=== PATIENT | male | born 1945 | race Two or more races ===

== ENCOUNTER → 2020-11-17 | Emergency (ER) | payer BC, OTHER | END | disposition left against medical advice (07) | LOC: ER 00:53 | DX: R51.9 Headache, unspecified (principal); Z53.21 Procedure and treatment not carried out due to patient leaving prior to being seen by health care provider | CPT/HCPCS: 93005 ==

== ENCOUNTER 2020-12-18 03:04 | Emergency (ER) | payer BC ==
[~2020-12-18] VITALS: Ht 182.9 cm; Wt 72.6 kg
[2020-12-18 04:06] LABS: Urine Bacteria FEW /hpf (None Seen); Urine Blood Negative /uL (Negative); Urine Specific Gravity 1.012 (1.001-1.035); Urine WBC <1 /hpf (0 - 3)
[2020-12-18 06:37] LABS: Basophils # (auto) 0 10 ^3/uL (0-0.2); Basophils % (auto) 0.3 % (0.0-2.0); Eosinophils # (auto) 0.1 10 ^3/uL (0-0.8); Eosinophils % (auto) 2.9 % (0.0-7.0); Hematocrit 30.3 % (41.0-53.0); Hemoglobin 9.5 g/dL (13.5-17.5); Lymphocytes # (auto) 0.7 10 ^3/uL (0.4-5.4); Lymphocytes % (auto) 20.3 % (10.0-50.0); Mean Corpuscular Hemoglobin 23.2 pg (28.0-32.0); Mean Corpuscular Hgb Conc. 31.3 g/dL (32.0-36.0); Mean Corpuscular Volume 74.2 fL (80.0-100.0); Monocytes # (auto) 0.2 10 ^3/uL (0-1.3); Monocytes % (auto) 6.7 % (0.0-12.0); Neutrophils # (auto) 2.4 10 ^3/uL (1.6-8.6); Neutrophils % (auto) 69.8 % (37.0-80.0); Nucleated Red Blood Cells % 0.1 %; Platelet Count (auto) 280 10^3/uL (140-450); Red Blood Cells 4.08 10^6/uL (4.5-5.90); Red Cell Distribution Width 19.5 % (11.8-14.3); White Blood Cell 3.4 10^3/uL (4.4-10.8)
[2020-12-18 06:46] VITALS: BP 168/60
[2020-12-18 07:06] LABS: Anion Gap 11 (5-15); Carbon Dioxide 21 mmol/L (21-32); Chloride 106 mmol/L (98-107); Glucose 81 mg/dL (74-106); Potassium 3.1 mmol/L (3.5-5.1); Sodium 138 mmol/L (136-145)
[2020-12-18 07:07] LABS: Albumin 3.4 g/dL (3.4-5.0); Blood Urea Nitrogen 9 mg/dL (7-18)
[2020-12-18 07:10] LABS: Alanine Aminotransferase 16 U/L (16-61); Aspartate Aminotransferase 17 U/L (15-37); BUN/Creatinine Ratio 10.8; GFR African American 117 mL/min; GFR Non-African American 97 mL/min
[2020-12-18 07:14] LABS: Alkaline Phosphatase 54 U/L (45-117); Bilirubin, Total 0.4 mg/dL (0.2-1.0); Total Protein 6.9 g/dL (6.4-8.2)
== END 2020-12-18 06:48 | disposition home or self-care (01) ==
LOC: EDBD 03:04 → ER 03:11
DX: M79.10 Myalgia, unspecified site (principal); R53.1 Weakness; R53.81 Other malaise; Z20.822 Contact with and (suspected) exposure to COVID-19
CPT/HCPCS: 36415; 71045; 80053; 81001; 84484; 85025; 87426; 93005

== ENCOUNTER 2020-12-26 07:43 | Emergency (ER) | payer BC ==
[~2020-12-26] VITALS: Ht 170.2 cm; Wt 81.6 kg
[2020-12-26] MEDS ORDERED: SODIUM CHLORIDE 0.9% 1,000 ML IV ONE (08:00)
[2020-12-26 08:10] LABS: Basophils # (auto) 0 10 ^3/uL (0-0.2); Eosinophils # (auto) 0 10 ^3/uL (0-0.8); Lymphocytes # (auto) 0.8 10 ^3/uL (0.4-5.4); Monocytes # (auto) 0.3 10 ^3/uL (0-1.3); Nucleated Red Blood Cells % 0.1 %
[2020-12-26 08:13] LABS: Basophils % (auto) 0.8 % (0.0-2.0); Eosinophils % (auto) 0.9 % (0.0-7.0); Hematocrit 29.9 % (41.0-53.0); Hemoglobin 9.3 g/dL (13.5-17.5); Lymphocytes % (auto) 15.9 % (10.0-50.0); Mean Corpuscular Hemoglobin 23.3 pg (28.0-32.0); Monocytes % (auto) 5.2 % (0.0-12.0); Neutrophils # (auto) 4.1 10 ^3/uL (1.6-8.6); Neutrophils % (auto) 77.2 % (37.0-80.0); Platelet Count (auto) 317 10^3/uL (140-450); Red Blood Cells 3.99 10^6/uL (4.5-5.90); Red Cell Distribution Width 19.9 % (11.8-14.3); White Blood Cell 5.3 10^3/uL (4.4-10.8)
[2020-12-26] MEDS ORDERED: ALUM & MAG HYDROX-SIMETH LIQ(MAALOX) 30 ML PO ONE (08:15)
[2020-12-26] MEDS ORDERED: DONNATAL 5ml ORAL Elix (BELLADONNA ALK-PHENOBARB) PO ONE (08:15)
[2020-12-26] MEDS ORDERED: LIDOCAINE VISCOUS 2% 15ML UD PO ONE (08:15)
[2020-12-26 08:22] LABS: Alanine Aminotransferase 19 U/L (16-61); Albumin 3.8 g/dL (3.4-5.0); Anion Gap 16 (5-15); Aspartate Aminotransferase 18 U/L (15-37); BUN/Creatinine Ratio 14.5; Blood Urea Nitrogen 18 mg/dL (7-18); Calcium 8.8 mg/dL (8.5-10.1); Carbon Dioxide 16 mmol/L (21-32); Chloride 108 mmol/L (98-107); GFR African American 73 mL/min; GFR Non-African American 61 mL/min; Glucose 80 mg/dL (74-106); Sodium 140 mmol/L (136-145)
[2020-12-26 08:29] LABS: Alkaline Phosphatase 52 U/L (45-117); Bilirubin, Total 0.3 mg/dL (0.2-1.0); Potassium 2.9 mmol/L (3.5-5.1); Total Protein 7.3 g/dL (6.4-8.2)
[2020-12-26 08:30] LABS: INR 1.02 (0.9-1.15); Partial Thromboplastin Time 23.1 sec (23.0-31.2)
[2020-12-26] MEDS ORDERED: POTASSIUM EFFERVESENT TAB 25 MEQ PO ONE (08:45)
[2020-12-26] MEDS ORDERED: NITROGLYCERIN 0.4 MG SL TAB SL PRN (11:30)
[2020-12-26] MEDS ORDERED: MORPHINE SULF INJ 2 MG/ML SYRINGE 1ML IV PRN (11:30)
[2020-12-26 12:50] VITALS: BP 162/73
[2020-12-27] MEDS ORDERED: HYDR-4798 PO ×2 (12:47)
[2020-12-27] MEDS ORDERED: BACL10TA PO ×2 (12:47)
[2020-12-27] MEDS ORDERED: FLUO-125 PO ×2 (12:47)
== END 2020-12-26 13:53 | disposition home or self-care (01) ==
LOC: ER 07:43 → TELE 07:44 → UNDOADMIN 07:44 → ER 13:53
DX: D64.9 Anemia, unspecified (principal); R07.9 Chest pain, unspecified; E87.6 Hypokalemia; E87.2 Acidosis; I10 Essential (primary) hypertension; I72.9 Aneurysm of unspecified site; Q53.9 Undescended testicle, unspecified; E66.3 Overweight; Z68.28 Body mass index [BMI] 28.0-28.9, adult; Z20.822 Contact with and (suspected) exposure to COVID-19
CPT/HCPCS: 36415; 71046; 74176; 80053; 84484; 85025; 85610; 85730; 87426; 93005; 96360; 99285; J7030

== ENCOUNTER 2020-12-27 06:26 | Inpatient (IN) | payer BC ==
[~2020-12-27] VITALS: Ht 170.2 cm; Wt 71.2 kg
[2020-12-27] MEDS: metroNIDAZOLE 500MG/100ML 100 ML IV SCH ×2 (01:20→13:44)
[2020-12-27] MEDS ORDERED: SODIUM CHLORIDE 0.9% 1,000 ML IV ONE (07:30)
[2020-12-27 08:12] LABS: Basophils # (auto) 0 10 ^3/uL (0-0.2); Basophils % (auto) 0.6 % (0.0-2.0); Eosinophils # (auto) 0 10 ^3/uL (0-0.8); Eosinophils % (auto) 0.2 % (0.0-7.0); Hematocrit 30.5 % (41.0-53.0); Hemoglobin 9.3 g/dL (13.5-17.5); Lymphocytes # (auto) 0.4 10 ^3/uL (0.4-5.4); Lymphocytes % (auto) 11.3 % (10.0-50.0); Mean Corpuscular Hemoglobin 22.8 pg (28.0-32.0); Mean Corpuscular Hgb Conc. 30.6 g/dL (32.0-36.0); Mean Corpuscular Volume 74.6 fL (80.0-100.0); Monocytes # (auto) 0.2 10 ^3/uL (0-1.3); Monocytes % (auto) 5.4 % (0.0-12.0); Neutrophils # (auto) 3.1 10 ^3/uL (1.6-8.6); Neutrophils % (auto) 82.5 % (37.0-80.0); Platelet Count (auto) 283 10^3/uL (140-450); Red Blood Cells 4.08 10^6/uL (4.5-5.90); Red Cell Distribution Width 20.1 % (11.8-14.3); White Blood Cell 3.8 10^3/uL (4.4-10.8)
[2020-12-27 08:15] LABS: Albumin 3.7 g/dL (3.4-5.0); Anion Gap 13 (5-15); Blood Urea Nitrogen 13 mg/dL (7-18); Calcium 8.5 mg/dL (8.5-10.1); Carbon Dioxide 18 mmol/L (21-32); Chloride 105 mmol/L (98-107); Glucose 82 mg/dL (74-106); Sodium 136 mmol/L (136-145)
[2020-12-27 08:19] LABS: INR 1.01 (0.9-1.15); Partial Thromboplastin Time 24.2 sec (23.0-31.2)
[2020-12-27 08:22] LABS: Alanine Aminotransferase 18 U/L (16-61); Alkaline Phosphatase 56 U/L (45-117); Aspartate Aminotransferase 14 U/L (15-37); BUN/Creatinine Ratio 15.1; Bilirubin, Total 0.4 mg/dL (0.2-1.0); GFR African American 112 mL/min; GFR Non-African American 93 mL/min; Total Protein 7.1 g/dL (6.4-8.2)
[2020-12-27] MEDS ORDERED: NITROGLYCERIN 0.4 MG SL TAB SL PRN (12:00)
[2020-12-27] MEDS ORDERED: MORPHINE SULF INJ 2 MG/ML SYRINGE 1ML IV PRN ×2 (12:00→12:30)
[2020-12-27] MEDS ORDERED: cefTRIAXone 1GM/50ML D5W 50 ML IV ONE (12:30)
[2020-12-27] MEDS ORDERED: ONDANSETRON HCL 4 MG/2 ML VIAL IV PRN (12:30)
[2020-12-27] MEDS ORDERED: ACETAMINOPHEN 500 MG TAB PO PRN (12:30)
[2020-12-27] MEDS ORDERED: TEMAZEPAM 15 MG CAP PO PRN (12:30)
[2020-12-27] MEDS ORDERED: traMADol HCL 50 MG TAB PO PRN (12:30)
[2020-12-27] MEDS ORDERED: FLUO-125 PO ×2 (12:47)
[2020-12-27] MEDS ORDERED: BACL10TA PO ×2 (12:47)
[2020-12-27] MEDS ORDERED: HYDR-4798 PO ×2 (12:47)
[2020-12-27] MEDS: SOD CHL 0.9%/ KCL 40MEQ 1,000 ML IV SCH ×2 (13:11→21:40)
[2020-12-27] MEDS ORDERED: GOLYTELY 4L KIT PO ONE (15:15)
[2020-12-27 20:00] VITALS: BP 149/89
[2020-12-27 20:09] LABS: CRP High Sensitivity 0.09 mg/dL (< 0.3)
[2020-12-27] MEDS: PANTOPRAZOLE 40 MG TAB PO SCH (21:40)
[2020-12-27 21:56] VITALS: BP 149/89
[2020-12-28 01:28] LABS: Hematocrit 29.1 % (41.0-53.0)
[2020-12-28] MEDS ORDERED: BACL10TA PO ×2 (01:28)
[2020-12-28] MEDS ORDERED: HYDR-4798 PO ×2 (01:28)
[2020-12-28] MEDS ORDERED: FLUO1TAB14 PO ×2 (01:28)
[2020-12-28] MEDS ORDERED: PNEUMOCOCCAL VACC POLYS 25 MCG/0.5 ML VIAL IM ONE (02:15)
[2020-12-28] MEDS: SOD CHL 0.9%/ KCL 40MEQ 1,000 ML IV SCH ×3 (04:50→21:50)
[2020-12-28 05:00] VITALS: BP 177/79
[2020-12-28 05:47] LABS: Basophils # (auto) 0 10 ^3/uL (0-0.2); Basophils % (auto) 0.2 % (0.0-2.0); Eosinophils # (auto) 0 10 ^3/uL (0-0.8); Lymphocytes # (auto) 0.9 10 ^3/uL (0.4-5.4); Monocytes # (auto) 0.4 10 ^3/uL (0-1.3)
[2020-12-28] MEDS: metroNIDAZOLE 500MG/100ML 100 ML IV SCH ×3 (05:47→22:15)
[2020-12-28 05:50] LABS: Eosinophils % (auto) 0.5 % (0.0-7.0); Hematocrit 28.5 % (41.0-53.0); Lymphocytes % (auto) 17.8 % (10.0-50.0); Mean Corpuscular Hemoglobin 23.4 pg (28.0-32.0); Mean Corpuscular Hgb Conc. 31.7 g/dL (32.0-36.0); Mean Corpuscular Volume 73.8 fL (80.0-100.0); Monocytes % (auto) 7.8 % (0.0-12.0); Neutrophils # (auto) 3.7 10 ^3/uL (1.6-8.6); Neutrophils % (auto) 73.7 % (37.0-80.0); Nucleated Red Blood Cells % 0.2 %; Platelet Count (auto) 273 10^3/uL (140-450); Red Blood Cells 3.86 10^6/uL (4.5-5.90)
[2020-12-28 05:54] LABS: Red Cell Distribution Width 20.2 % (11.8-14.3)
[2020-12-28] MEDS ORDERED: GOLYTELY 4L KIT PO ONE (06:00)
[2020-12-28 06:14] LABS: Albumin 3.4 g/dL (3.4-5.0); Calcium 8.5 mg/dL (8.5-10.1)
[2020-12-28 06:19] LABS: BUN/Creatinine Ratio 11.3; Bilirubin, Total 0.4 mg/dL (0.2-1.0); Total Protein 6.6 g/dL (6.4-8.2)
[2020-12-28 06:39] LABS: Potassium 2.9 mmol/L (3.5-5.1)
[2020-12-28] MEDS ORDERED: POTASSIUM CHL 20MEQ/100ML 100 ML IV ONE (07:30)
[2020-12-28] MEDS ORDERED: POTASSIUM CHL 20 Meq TABLET PO ONE (07:30)
[2020-12-28 09:00] VITALS: BP 136/67
[2020-12-28] MEDS ORDERED: cefTRIAXone 1GM/50ML D5W 50 ML IV SCH (09:00)
[2020-12-28] MEDS: PANTOPRAZOLE 40 MG TAB PO SCH ×2 (09:25→22:15)
[2020-12-28] MEDS ORDERED: LIDOCAINE VISCOUS 2% 15ML UD ONE (10:11)
[2020-12-28] MEDS ORDERED: MIDAZOLAM HCL 5 MG/ML-1ML VIAL ONE (10:11)
[2020-12-28] MEDS ORDERED: diphenhdrAMINE HCL 50 MG/1 ML VL ONE (10:11)
[2020-12-28] MEDS ORDERED: fentaNYL CITRATE 100 MCG/2 ML VL ONE (10:12)
[2020-12-28] MEDS ORDERED: FLUMAZENIL 0.1 MG/ML INJ 10ML MDV IV ONE (10:14)
[2020-12-28] MEDS ORDERED: NALOXONE HCL 0.4 MG/ML VIAL ONE (10:14)
[2020-12-28] MEDS ORDERED: LIDOCAINE VISCOUS 2% 15ML UD MT ONE (11:31)
[2020-12-28] MEDS ORDERED: MIDAZOLAM HCL 5 MG/ML-1ML VIAL IV ONE ×3 (11:33→11:48)
[2020-12-28] MEDS ORDERED: fentaNYL CITRATE 100 MCG/2 ML VL IV ONE ×3 (11:33→11:48)
[2020-12-28] MEDS ORDERED: diphenhdrAMINE HCL 50 MG/1 ML VL IV ONE (11:35)
[2020-12-28 16:32] VITALS: BP 167/76
[2020-12-28] MEDS ORDERED: SUCR1TAB22 OR ×2 (18:28)
[2020-12-28] MEDS ORDERED: PANT40T PO ×2 (18:28)
[2020-12-28 21:45] VITALS: BP 162/72
[2020-12-28 22:12] VITALS: BP 142/66
== END 2020-12-28 23:58 | disposition home health service (06) | DRG 379 ==
LOC: ER 06:26 → TELE 06:27 → TELE-EAST 20:00
PROVIDERS: ADMIT Internal Medicine; ATTEND Internal Medicine
PROC: 0DB68ZX Excision of Stomach, Via Natural or Artificial Opening Endoscopic, Diagnostic (ICD-10-PCS; principal; 2020-12-28 11:28)
PROC: 0DBF8ZX Excision of Right Large Intestine, Via Natural or Artificial Opening Endoscopic, Diagnostic (ICD-10-PCS; 2020-12-28 11:28)
DX: K29.81 Duodenitis with bleeding (principal); K29.71 Gastritis, unspecified, with bleeding; K26.4 Chronic or unspecified duodenal ulcer with hemorrhage; K57.31 Diverticulosis of large intestine without perforation or abscess with bleeding; D64.9 Anemia, unspecified; E87.6 Hypokalemia; K63.5 Polyp of colon; K64.8 Other hemorrhoids; D72.819 Decreased white blood cell count, unspecified; I10 Essential (primary) hypertension; E66.3 Overweight; F32.9 Major depressive disorder, single episode, unspecified; Z20.822 Contact with and (suspected) exposure to COVID-19; I72.8 Aneurysm of other specified arteries; Z68.24 Body mass index [BMI] 24.0-24.9, adult
CPT/HCPCS: 36415; 43239; 45384; 71045; 80053; 82150; 82378; 83690; 84484; 85014; 85018; 85025; 85045; 85610; 85652; 85730; 86141; 87426; 93005; 96361; 96365; 96368; G0378; J0696; J2250; J3480; J3490